=== PATIENT | male | born 1990 | race Caucasian/White ===

== ENCOUNTER 2019-04-19 09:25 | Emergency (ER) | payer MEDICAID, OTHER ==
--- NOTE | 2019-04-19 10:31 | UC ---
HPI Febrile Illness - HPI Summary HPI Summary: 28 yo with hepatitis C, says HIV negative weeks ago, with fever, mouth soreness , hand pain and painful papules on the hands. Most bothered by mouth soreness. No cough, nausea, vomiting, headache. Discharged from drug rehab 1 week ago. Sexually active with one female since that time. No dysuria, frequency or penile discharge. No headache, rashes, evidence of synovitis. Obtained labs from [facility], dated December and February 2019. WBC 6.5, mild elevation of ALT to 56, other LFT's normal. - History of Current Complaint Chief Complaint: UCSkin Time Seen by Provider: 04/19/19 10:26 Hx Obtained From: Patient Onset/Duration: Started Days Ago Timing: Constant Initial Severity: Mild Current Severity: Moderate Pain Intensity: 9 Aggravating Factors: Other: - swallowing Alleviating Factors: OTC Medicine Associated Signs and Symptoms: Arthralgia, Swelling - diffuse hand swelling. - Risk Factors Pseudomonas Risk Factors: Negative Serious Bacterial Infection Risk Factors: Negative - Allergy/Home Medications Allergies/Adverse Reactions: Allergies Allergy/AdvReac Type Severity Reaction Status Date / Time seasonal sx Allergy Sneezing Uncoded 04/19/19 10:01 Home Medications: Home Medications FLUoxetine CAP* [PROzac CAP*] 20 mg PO BEDTIME 04/19/19 [History Confirmed 04/19] Ibuprofen TAB* [Motrin TAB* 800 MG] 800 mg PO DAILY PRN 04/19/19 [History Confirmed 04/19/19] Omeprazole 20 mg PO QAM 04/19/19 [History Confirmed 04/19/19] PMH/Surg Hx/FS Hx/Imm Hx Other History Of: Hepatitis C - Surgical History Surgical History: Yes Surgery Procedure, Year, and Place: finger surgery left index - Family History Known Family History: Positive: None, Respiratory Disease - Social History Occupation: Unemployed Lives: Alone - just released from [facility], temporary housing. Alcohol Use: None Alcohol Amount: 0-30 Substance Use Type: None Substance Use Comment - Amount & Last Used: "I stopped doing that" when discussed with nurse Smoking Status (MU): Current Some Day Smoker Type: Cigarettes Amount Used/How Often: occasional use Have You Smoked in the Last Year: Yes - Immunization History Most Recent Influenza Vaccination: no Review of Systems All Other Systems Reviewed And Are Negative: Yes Constitutional: Positive: Fever, Fatigue Skin: Positive: Rash Eyes: Positive: Negative ENT: Positive: Sore Throat, Other - mouth pain Respiratory: Positive: Negative Cardiovascular: Positive: Negative Gastrointestinal: Negative: Abdominal Pain, Vomiting, Diarrhea, Nausea Genitourinary: Negative: Dysuria, Hematuria, Frequency, Urgency, Vaginal/Penile Burning, Vaginal/Penile Itching, Vaginal/Penile Discharge Motor: Positive: Other - painful hands Neurovascular: Positive: Negative Musculoskeletal: Positive: Arthralgia Neurological: Positive: Negative. Negative: Headache Psychological: Positive: Negative Is Patient Immunocompromised?: No Physical Exam Triage Information Reviewed: Yes Appearance: Well-Nourished, Ill-Appearing - Looks fatigued, Pain Distress - moderate, Other: - No jaundice or scleral icterus Vital Signs: Initial Vital Signs Temp 100.3 F 04/19/19 09:52 Pulse 88 04/19/19 09:52 Resp 20 04/19/19 09:52 BP 136/96 04/19/19 09:52 Pulse Ox 97 04/19/19 09:52 Vital Signs Reviewed: Yes Eyes: Positive: Conjunctiva Inflamed - bilateral injection ENT: Positive: Pharyngeal erythema, TMs normal, Other - underside of tongue with plaquing, mild gum inflammation. Soft palate erythema and mild swelling without ulceration. Dental Exam: Normal Neck: Positive: Supple, Nontender, No Lymphadenopathy - Could not palpate any increase in nodes; tenderness in submandibular area, but no palpable enlargement. Respiratory: Positive: Lungs clear, Normal breath sounds Cardiovascular: Positive: RRR, No Murmur Abdomen Description: Positive: Nontender, No Organomegaly, Soft Musculoskeletal Exam: Other - hands diffusely swollen. Right thumb with raised tender papule, no vesicles seen. Musculoskeletal: Positive: ROM Limited @ - wrists with pain with extremes of flexion and extension Neurological Exam: Normal Neurological: Positive: Alert, Muscle Tone Normal Skin Exam: Other - left arm with old track eng. Mild erythema over old tracks , but no palpable thrombus. Not warm. Skin: Positive: Rashes - small papules on hands. Course/Dx - Course Course Of Treatment: treat thrush, give pain control with lidocaine and topical benadryl. Testing ordered for confirmation of oral thrush, and advised HIV screen to be repeated, along with chemistries and CRP. - Febrile Illness Differential Diagnoses: Other: - STI, oral candidiasis. - Diagnoses Provider Diagnosis: Oral candidiasis Discharge ED - Sign-Out/Discharge Documenting (check all that apply): Patient Departure All imaging exams completed and their final reports reviewed: No Studies - Discharge Plan Condition: Stable Disposition: HOME Prescriptions: Clotrimazole DAKOTA* [Mycelex Dakota*] 10 mg MT SEE INSTRUCTIONS #50 dakota Lidocaine 2% VISCOUS* [Xylocaine 2% Viscous*] 15 ml SWISH SPIT Q4H PRN #1 btl PRN Reason: Pain - Moderate Patient Education Materials: Oral Candidiasis (ED) Referrals: No Primary Care Phys,NOPCP [Primary Care Provider] - Additional Instructions: Begin use of clotrimazole troches to treat oral thrush. for pain control: use ibuprofen 600mg 4 times per day AND swish and spit lidocaine as directed. You can also use benadryl suspension 12.5mg in 5 cc--swish and swallow this -- and it can add to pain relief. Follow up with the [facility] as arranged to manage hepatitis C. The results of testing will take up to 3 days, and you can call to review reports. You will be called with any positive results that would change this treatment plan. I am not certain what is causing the hand pain and swelling. If symtoms progress , ensure that you follow up with [facility] or here. - Billing Disposition and Condition Condition: STABLE Disposition: Home
[2019-04-19] MEDS ORDERED: Ibuprofen TAB* 600 MG PO ONE (10:55)
[2019-04-19 12:03] VITALS: BP 135/85
--- NOTE | 2019-04-19 14:56 | UC ---
- Progress Note Progress Note: Rx changed to fluconazole due to lack of insurance coverage for troches. Lidocaine not covered. Advised by nursing staff that there is no substitute for this. Course/Dx - Diagnoses Provider Diagnoses: Oral candidiasis Discharge ED - Sign-Out/Discharge Documenting (check all that apply): Patient Departure All imaging exams completed and their final reports reviewed: No Studies - Discharge Plan Condition: Stable Disposition: HOME Prescriptions: Clotrimazole DAKOTA* [Mycelex Dakota*] 10 mg MT SEE INSTRUCTIONS #50 dakota Fluconazole 100 MG TAB* [Diflucan 100 MG TAB*] 100 mg PO DAILY #7 tab Lidocaine 2% VISCOUS* [Xylocaine 2% Viscous*] 15 ml SWISH SPIT Q4H PRN #1 btl PRN Reason: Pain - Moderate Patient Education Materials: Oral Candidiasis (ED) Referrals: No Primary Care Phys,NOPCP [Primary Care Provider] - Additional Instructions: Begin use of clotrimazole troches to treat oral thrush. for pain control: use ibuprofen 600mg 4 times per day AND swish and spit lidocaine as directed. You can also use benadryl suspension 12.5mg in 5 cc--swish and swallow this -- and it can add to pain relief. Follow up with the [facility] as arranged to manage hepatitis C. The results of testing will take up to 3 days, and you can call to review reports. You will be called with any positive results that would change this treatment plan. I am not certain what is causing the hand pain and swelling. If symtoms progress , ensure that you follow up with [facility] or here. - Billing Disposition and Condition Condition: STABLE Disposition: Home
[2019-04-19 15:10] LABS: ABS Basophils 0.1 10^3/ul (0-0.2); ABS Eosinophils 0.3 10^3/ul (0-0.6); ABS Lymphocytes 1.3 10^3/ul (1.0-4.8); ABS Monocytes 1.1 10^3/ul (0-0.8); ABS Neutrophils 7.1 10^3/ul (1.5-7.7); Eosinophil % 2.7 %; Hematocrit 52 % (42-52); Hemoglobin 17.9 g/dL (14.0-18.0); Lymphocyte % 13.7 %; Mean Corpuscular HGB Conc 34 g/dL (31-36); Mean Corpuscular Hemoglobin 31 pg (27-31); Mean Corpuscular Volume 90 fL (80-94); Mean Platelet Volume 9.2 fL (7.4-10.4); Platelet Count 238 10^3/uL (150-450); Red Blood Count 5.77 10^6 /uL (4.18-5.48); Red Cell Distribution Width 13 % (10-15); White Blood Count 9.8 10^3/uL (3.5-10.8)
[2019-04-19 16:03] LABS: HIV 4th Generation Nonreactive (Nonreactive)
[2019-04-19 19:51] LABS: Albumin 4.2 g/dL (3.2-5.2); Albumin/Globulin Ratio 1.6 (1-3); BUN/Creatinine Ratio 15.3 (8-20); C Reactive Protein 49.2 mg/L (<8.01); Calcium 10.2 mg/dL (8.6-10.3); EGFR African American 94.1 (>60); EGFR Non-African American 77.8 (>60); Globulin 2.6 g/dL (2-4); Potassium 4.4 mmol/L (3.5-5.0); Total Bilirubin 0.7 mg/dL (0.2-1.0); Total Protein 6.8 g/dL (6.4-8.9)
[2019-04-20] MEDS ORDERED: Fluconazole 100 MG TAB* TAB PO SCH (09:00)
[2019-04-22 13:50] LABS: Chlamydia trachomatis NAA Negative (Negative); Neisseria gonorrhoeae (GC) NAA Negative (Negative)
== END 2019-04-19 12:17 | disposition home or self-care (01) ==
LOC: UCCORT 09:25
DX: B37.0 Candidal stomatitis (principal); Z79.899 Other long term (current) drug therapy; B19.20 Unspecified viral hepatitis C without hepatic coma; F17.210 Nicotine dependence, cigarettes, uncomplicated
CPT/HCPCS: 36415; 80053; 81003; 85025; 86140; 87102; 87389; 87491; 87591; 99203; A9270-GY; G0463